=== PATIENT | female | born 1985 | race Caucasian/White ===

== ENCOUNTER → 2019-02-27 | Outpatient (CLI) | payer BC, SELFPAY | END | disposition home or self-care (01) | LOC: LABSPEC 11:02 | PROVIDERS: Visit Provider Obstetrics & Gynecology | DX: Z12.4 Encounter for screening for malignant neoplasm of cervix (principal) | CPT/HCPCS: 87624; 88175; G0145 ==

== ENCOUNTER → 2019-05-11 11:47 | Outpatient (CLI) | payer BC, SELFPAY ==
[2019-05-11 18:48] LABS: Chlamydia Trachomatis by PCR Negative (Negative); Neisserai gonorrhoeae by PCR Negative (Negative); Probe Check PASS; Sample Adequacy Control PASS; Specimen Processing Control PASS
== END ==
PROVIDERS: Referring Provider Advanced Practice Midwife; Visit Provider Advanced Practice Midwife
DX: Z34.81 Encounter for supervision of other normal pregnancy, first trimester (principal)
CPT/HCPCS: 87491; 87591

== ENCOUNTER 2019-11-01 04:10 | Outpatient (CLI) | payer BC, SELFPAY ==
[2019-11-01 04:25] VITALS: BP 112/68; PULSE 83; PULSE 88; PULSE 93; TEMP 36.9; O2SAT 100
[2019-11-01 04:51] VITALS: BMI 34.5
[2019-11-01 04:51] LABS: ROM Internal Control Test YES-OK TO RESULT pt. (Internal QC)
[2019-11-01 04:52] LABS: ROM Patient Test POSITIVE (Negative)
[2019-11-01] MEDS: Betamethasone/Betamethasone 30 MG/5 ML Vial 12 MG IM (05:27)
[2019-11-01] MEDS: Lactated Ringers 1,000 ML 100 ML IV (05:40)
--- NOTE | 2019-11-01 05:49 | HP.PCM_ITS ---
History Date of Admission: 11/01/19 Final JAYNA: 12/28/19 Gestational age: 31 Weeks and 6 Days History of this : Patient presented complaining of LOF. Denies VB but reports some irregular ctxs. Also reports good FM x2. Medical History: Medical History (This Medical Record has been edited. Action required.) Asthma J45.909 depression O99.345, F53.0 Allergies No Known Allergies Allergy (Verified 11/01/19 04:41) Home Medications: Home Medications Omeprazole [Prilosec] 10 mg PO DAILY PRN 11/01/19 Pnv No.103/Folic/Om3s/Fish Oil [ Gummies] 2 ea PO DAILY 11/01/19 Smoking Status: Never smoker Alcohol: None Number of Fetus(es): 2 NST - FHR Rate Baby A Baseline: 150 Variability:: Minimal, Moderate Accelerations:: 15 x 15 Decelerations:: Variable NST Reactive:: Yes Uterine Activity:: Irregular - FHR Rate Baby B Baseline: 135 Variability:: Minimal, Moderate Accelerations:: 15 x 15 Decelerations:: Variable NST Reactive:: Yes Uterine Activity:: Irregular History Past Pregnancies: Past Pregnancies Delivery Date Name GA/ Weeks Outcome Route Wt Sex Labor Length Anesthesia Delivery Location Provider FOB Labs: See [facility] prenatals Physical Exam Vitals: Vital Signs Temp Pulse BP Pulse Ox 98.4 F 83 112/68 100 11/01/19 04:25 11/01/19 04:25 11/01/19 04:25 11/01/19 04:25 General: Alert, Oriented x3 Abdomen: Soft, Non Tender, Non-Distended, Gravid Neurological: Cranial nerves II-XII grossly intact [employer]NAGER: Normal external genitalia Cervix Dilation (cm): 0 - SSE - appears visually closed Assessment/Plan All Active Problems (This Medical Record has been edited. Action required.) Physical exam, pre-employment (Acute) This is a 34 year-old, G2, P1001, at 31&6 weeks gestational age with di/di twins and PPROM. Plan for transport to [facility] - discussed with ID - AF, starting ampicillin & azithromycin FWB - reassuring EFM, s/p BMZ#1 Magnesium sulfate started for neuroprotection Plan of care discussed with patient & all questions answered
[2019-11-01 05:50] LABS: Hematocrit 33.6 % (37-47); Hemoglobin 10.9 g/dL (12.0-15.0); Mean Corp Hgb Conc 32.4 g/dL (32-36); Mean Corpuscular Hgb 27.7 pg (27.0-32.0); Mean Corpuscular Volume 85.3 fL (81-99); Mean Platelet Vol. 10.9 fl (6.2-12.0); Platelet Count 185 K/mm3 (150-450); RBC Distribution Width CV 12.9 % (11.6-14.6); RBC Distribution Width SD 40.1 fl (35.1-43.9); Red Blood Count 3.94 M/mm3 (4.2-5.4); White Blood Count 10.7 K/mm3 (4.4-11.0)
[2019-11-01 06:06] VITALS: BP 134/71
[2019-11-01 06:07] VITALS: PULSE 96; O2SAT 97
[2019-11-01] MEDS: 0.9% Saline Lock 10 ML Syringe IV (06:08)
[2019-11-01 06:15] LABS: Group B Strep DNA By PCR Negative (Negative); Internal Control PASS; Probe Check PASS; Specimen Processing Control PASS
[2019-11-01 06:27] VITALS: BP 134/71; PULSE 97; TEMP 36.6; O2SAT 100
[2019-11-01] MEDS: Magnesium Sulfate 4gm/100mL 4 GM/100 ML IV.SOLN. IV (06:27)
[2019-11-01] MEDS: Magnesium Sulfate 4gm/100mL 2 GM/50 ML IV.SOLN. IV (06:27)
[2019-11-01] MEDS: Magnesium Sulfate 20 GM/500 ML BAG IV (06:30)
== END 2019-11-01 06:30 | disposition short-term general hospital (02) ==
PROVIDERS: Referring Provider Obstetrics & Gynecology; Visit Provider Obstetrics & Gynecology
DX: O42.913 Preterm premature rupture of membranes, unspecified as to length of time between rupture and onset of labor, third trimester (principal); O30.003 Twin pregnancy, unspecified number of placenta and unspecified number of amniotic sacs, third trimester; Z3A.31 31 weeks gestation of pregnancy; O99.513 Diseases of the respiratory system complicating pregnancy, third trimester; J45.909 Unspecified asthma, uncomplicated; Z79.899 Other long term (current) drug therapy
CPT/HCPCS: 96365; 96367; 36415; 59025; 59050; 76815; 84112; 85027; 87077; 87081; 87653; 96372; 99218; J7120; G0378; J0702